=== PATIENT | female | born 1995 | race Caucasian/White ===

== ENCOUNTER → 2020-06-09 | Outpatient (REF) | payer MEDICAID | LOC: M WUC 20:09 | PROVIDERS: ATTEND Physician Assistant | DX: Z11.3 Encounter for screening for infections with a predominantly sexual mode of transmission (principal) ==

== ENCOUNTER 2020-11-25 01:31 | Emergency (ER) | payer MEDICAID, OTHER ==
[~2020-11-25] VITALS: Ht 165.1 cm; Wt 70.4 kg
[2020-11-25 02:34] LABS: BASO % 0.4 % (0.0-1.0); EOS # 0.1 10^3/uL (0.0-0.5); EOS % 0.8 % (0.0-3.0); HEMATOCRIT 41.5 % (36.0-47.0); HEMOGLOBIN 13.9 g/dl (12.0-15.5); LYMPH # 2.1 10^3/uL (1.5-5.0); LYMPH % 21.8 % (24.0-44.0); MEAN CORPUSCULAR HEMOGLOBIN 30.1 pg (27.0-33.0); MEAN CORPUSCULAR HGB CONC 33.5 g/dl (32.0-36.5); MEAN CORPUSCULAR VOLUME 89.8 fl (80.0-96.0); MONO # 0.7 10^3/uL (0.0-0.8); MONO % 7.5 % (2.0-8.0); NEUTROPHILS # 6.6 10^3/uL (1.5-8.5); NEUTROPHILS % 69.2 % (36.0-66.0); PLATELET COUNT, AUTOMATED 182 10^3/uL (150-450); RED BLOOD COUNT 4.62 10^6/uL (4.00-5.40); WHITE BLOOD COUNT 9.5 10^3/uL (4.0-10.0)
[2020-11-25 02:36] LABS: APPEARANCE, URINE HAZY (CLEAR); BACTERIA, URINE AUTO NEGATIVE (NEGATIVE); BILIRUBIN, URINE AUTO NEGATIVE (NEGATIVE); BLOOD, URINE BLOOD NEGATIVE (NEGATIVE); COLOR, URINE YELLOW (YELLOW); GLUCOSE, URINE (UA) AUTO NEGATIVE (NEGATIVE); KETONE, URINE AUTO 2+ mg/dL (NEGATIVE); LEUKOCYTE ESTERASE, URINE AUTO NEGATIVE (NEGATIVE); MUCUS, URINE LARGE (NEGATIVE); NITRITE, URINE AUTO NEGATIVE (NEGATIVE); PROTEIN, URINE AUTO 1+ mg/dL (NEGATIVE); RBC, URINE AUTO 1 /HPF (0-3); SPECIFIC GRAVITY URINE AUTO 1.033 (1.002-1.035); SQUAMOUS EPITHELIAL CELL UR AU 4 /HPF (0-6); UROBILINOGEN, URINE AUTO 0.2 mg/dL (0.0-2.0); WBC, URINE AUTO 3 /HPF (0-3)
--- NOTE | 2020-11-25 03:00 | REPVR ---
PROCEDURE INFORMATION: Exam: US First Trimester, Transabdominal and US , Transvaginal Exam date and time: 11/25/2020 2:10 AM Age: 25 years old Clinical indication: Lmp or gestational age (in weeks): Unknown; Vaginal bleeding; TECHNIQUE: Imaging protocol: Real-time transabdominal obstetrical ultrasound of the maternal pelvis and a first trimester , less than 14 weeks 0 days, with image documentation. Transvaginal imaging was used for better evaluation of the fetus, adnexa, and/or cervix. COMPARISON: No relevant prior studies available. FINDINGS: Gestation: There is a single intrauterine gestational sac. However, no pole or yolk sac is visualized. Embryonic/ heart rate: No cardiac activity is visualized. Placenta: The placenta has not yet formed. No subchorionic hemorrhage is noted. Amniotic fluid: Amniotic fluid is normal for gestational age. BIOMETRY: Gestational age (AUA): 4 weeks 6 days Estimated due date (AUA): 07/29/2021 Mean sac diameter: 0.34 cm MATERNAL: Uterus: The anteverted uterus measures 8.9 cm x 3 cm x 4.8 cm. No myometrial mass is noted. Cervix: Unremarkable. Right adnexa: The right ovary measures 3.8 cm x 2.4 cm x 2.5 cm and there is a 2.2 cm x 1.8 cm x 1.7 cm heterogeneous region in the right ovary that may represent a corpus luteal cyst or focal heterogeneity. The arterial and venous color Doppler flow and spectral waveforms within the right ovary are within normal limits, without evidence for right ovarian torsion. No right tubal mass is noted. Left adnexa: The left ovary is normal in appearance. No left ovarian cyst or left adnexal mass is noted. The left ovary measures 2.6 cm x 1.3 cm x 2.7 cm. The color Doppler flow and spectral waveforms within the left ovary are within normal limits, without evidence for left ovarian torsion. Intraperitoneal space: No free fluid is seen from the images obtained. IMPRESSION: Single intrauterine gestational sac with a mean sac diameter corresponding to a gestational age of 4 weeks 6 days and estimated due date on 07/29/2021. However, no pole is visualized, which may be secondary to the early gestational age versus an anembryonic . Follow-up serial beta HCG levels and a follow-up obstetrical ultrasound in 10-14 days or as clinically indicated are suggested. Electronically signed by: Deyvi David On 11/25/2020 02:59:43 AM
[2020-11-25 03:40] VITALS: BP 128/70
[2020-11-25 04:53] LABS: CHLAMYDIA DNA AMPLIFICATION NEGATIVE (NEGATIVE); GC DNA AMPLIFICATION NEGATIVE (NEGATIVE)
== END 2020-11-25 03:45 | disposition home or self-care (01) ==
LOC: M ED 01:31
DX: O36.80X0 Pregnancy with inconclusive fetal viability, not applicable or unspecified (principal); O26.851 Spotting complicating pregnancy, first trimester; Z87.59 Personal history of other complications of pregnancy, childbirth and the puerperium; Z3A.01 Less than 8 weeks gestation of pregnancy

== ENCOUNTER → 2020-11-27 | Outpatient (CLI) | payer OTHER | LOC: M LAB 10:54 | PROVIDERS: ATTEND Obstetrics & Gynecology | DX: Z32.00 Encounter for pregnancy test, result unknown (principal) ==

== ENCOUNTER → 2020-12-01 | Outpatient (REF) | payer OTHER ==
[2020-12-01 13:29] LABS: HEMATOCRIT 41.2 % (36.0-47.0); HEMOGLOBIN 13.5 g/dl (12.0-15.5); MEAN CORPUSCULAR HEMOGLOBIN 30.3 pg (27.0-33.0); MEAN CORPUSCULAR HGB CONC 32.8 g/dl (32.0-36.5); MEAN CORPUSCULAR VOLUME 92.6 fl (80.0-96.0); PLATELET COUNT, AUTOMATED 169 10^3/uL (150-450); RED BLOOD COUNT 4.45 10^6/uL (4.00-5.40); WHITE BLOOD COUNT 9.5 10^3/uL (4.0-10.0)
[2020-12-01 14:43] LABS: HEPATITIS C VIRUS ABY INDEX < 0.0 INDEX (<0.8); HIV 1&2 SCREEN CENTAUR NEGATIVE (NEGATIVE)
== END ==
LOC: M PLALAB 10:50
PROVIDERS: ATTEND Advanced Practice Midwife
DX: Z34.81 Encounter for supervision of other normal pregnancy, first trimester (principal); Z3A.00 Weeks of gestation of pregnancy not specified

== ENCOUNTER 2021-01-20 20:01 | Emergency (ER) | payer MEDICAID, OTHER ==
[~2021-01-20] VITALS: Ht 165.1 cm; Wt 69.8 kg
[2021-01-20 21:11] LABS: BASO % 0.2 % (0.0-1.0); EOS # 0.1 10^3/uL (0.0-0.5); EOS % 1.2 % (0.0-3.0); HEMOGLOBIN 12.3 g/dl (12.0-15.5); LYMPH # 1.4 10^3/uL (1.5-5.0); MEAN CORPUSCULAR HEMOGLOBIN 30.3 pg (27.0-33.0); MEAN CORPUSCULAR HGB CONC 34.2 g/dl (32.0-36.5); MEAN CORPUSCULAR VOLUME 88.7 fl (80.0-96.0); MONO # 0.5 10^3/uL (0.0-0.8); NEUTROPHILS # 6.7 10^3/uL (1.5-8.5); NEUTROPHILS % 76.1 % (36.0-66.0); PLATELET COUNT, AUTOMATED 165 10^3/uL (150-450); RED BLOOD COUNT 4.06 10^6/uL (4.00-5.40); WHITE BLOOD COUNT 8.8 10^3/uL (4.0-10.0)
[2021-01-20 21:44] LABS: BLOOD UREA NITROGEN 11 MG/DL (7-18); CALCIUM LEVEL 8.5 MG/DL (8.5-10.1); CARBON DIOXIDE LEVEL 25 MEQ/L (21-32); CHLORIDE LEVEL 106 MEQ/L (98-107); CREATININE FOR GFR 0.59 MG/DL (0.55-1.30); GLOMERULAR FILTRATION RATE > 60.0 (>60); GLUCOSE, FASTING 76 MG/DL (70-100); POTASSIUM SERUM 3.7 MEQ/L (3.5-5.1); SODIUM LEVEL 136 MEQ/L (136-145)
[2021-01-20 22:42] LABS: HCG, SERUM QUANTITATIVE 24593 MIU/ML
--- NOTE | 2021-01-20 22:54 | REPVR ---
PROCEDURE INFORMATION: Exam: US , Limited Exam date and time: 01/20/2021 9:29 PM Age: 25 years old Clinical indication: Lmp or gestational age (in weeks): 13w 1d; Other: Vaginal bleeding; ; Additional info: Vaginal bleeding, 13 weeks preg TECHNIQUE: Imaging protocol: Real-time ultrasound of the maternal uterus with image documentation. Exam focused on the clinical indication. COMPARISON: 1ST TRIMESTER US 2020-11-25 01:53 FINDINGS: Gestation: Intrauterine gestation. presentation: Breech presentation. heart rate: heart rate 155 bpm. Placenta: Posterior grade 0 placenta with complete previa. BIOMETRY: Gestational age (AUA): Gestational age 13 weeks and 1 day. Estimated due date (AUA): Estimated due date 07/27/2021. MATERNAL: Cervix: Closed 3.2 cm cervix. IMPRESSION: 1. Complete placenta previa, recommend follow-up. 2. Living 13 week and 1 day gestation with estimated due date 07/27/2021. Electronically signed by: Manfred Grant On 01/20/2021 22:54:50 PM
[2021-01-21] VITALS: BP 123/82
--- NOTE | 2021-01-22 20:51 | ED PDOC ---
Post-Departure Follow-Up ob us faxed to eleuterio newman for fu Mila Fleming MD Jan 22, 2021 20:51
== END 2021-01-21 00:02 | disposition home or self-care (01) ==
LOC: M ED 20:01
DX: O44.02 Complete placenta previa NOS or without hemorrhage, second trimester (principal); O21.9 Vomiting of pregnancy, unspecified; Z3A.13 13 weeks gestation of pregnancy

== ENCOUNTER → 2021-03-07 | Outpatient (CLI) | payer OTHER ==
--- NOTE | 2021-03-07 12:13 | REP ---
INDICATION: ANATOMY,PLACENTA LOCATION. COMPARISON: 01/20/2021. TECHNIQUE: Real-time sonographic evaluation of the gravid uterus performed. FINDINGS: Estimated gestational age is19 weeks 5 days, EDC 07/27/2021. Today's measurements indicate appropriate growth. Presentation: Cephalic Placenta posterior, grade 0, without evidence of placenta previa. heart rate is recorded at 139 beats per minute. Amniotic fluid is subjectively normal. Closed cervical length is measured at 3.0 cm. Biometry chart: BPD: 43 mm, 18 weeks 6 days, 29th percentile. HC: 160 mm, 18 weeks 6 days, 24th percentile AC: 148 mm, 20 weeks 0 days, 57th percentile Femur length: 30 mm, 19 weeks 2 days, 40th percentile HC to AC ratio: 1.09, normal range 1.06-1.25. Estimated weight: 302g, 39th percentile. anatomy: Cranium: Grossly normal Lateral Ventricles/Choroid Plexus: Grossly normal Posterior Fossa/Cerebellum: Grossly normal Nose/lips/profile: Grossly normal Four chamber heart: Grossly normal Right ventricular outflow tract: Grossly normal Left ventricular outflow tract: Grossly normal Left-sided stomach: Grossly normal Kidneys: Grossly normal Bladder: Grossly normal Cord Insertion: Grossly normal 3 vessel cord: Grossly normal Spine: Grossly normal IMPRESSION: Viable single intrauterine gestation as above. <Electronically signed by Jesu Camacho > 03/07/21 [id number]
== END ==
LOC: M WHC 09:00
PROVIDERS: ATTEND Advanced Practice Midwife
DX: O44.02 Complete placenta previa NOS or without hemorrhage, second trimester (principal); Z3A.19 19 weeks gestation of pregnancy

== ENCOUNTER → 2021-05-08 | Outpatient (CLI) | payer OTHER ==
[2021-05-08 13:10] LABS: HEMATOCRIT 34.6 % (36.0-47.0); HEMOGLOBIN 11.3 g/dl (12.0-15.5); MEAN CORPUSCULAR HEMOGLOBIN 29.8 pg (27.0-33.0); MEAN CORPUSCULAR HGB CONC 32.7 g/dl (32.0-36.5); MEAN CORPUSCULAR VOLUME 91.3 fl (80.0-96.0); PLATELET COUNT, AUTOMATED 156 10^3/uL (150-450); RED BLOOD COUNT 3.79 10^6/uL (4.00-5.40); WHITE BLOOD COUNT 11.6 10^3/uL (4.0-10.0)
== END ==
LOC: M LAB 10:56
PROVIDERS: ATTEND Advanced Practice Midwife
DX: Z34.82 Encounter for supervision of other normal pregnancy, second trimester (principal); Z3A.00 Weeks of gestation of pregnancy not specified

== ENCOUNTER 2021-05-12 17:36 | Emergency (ER) | payer OTHER ==
[~2021-05-12] VITALS: Ht 165.1 cm; Wt 78.6 kg
[2021-05-12 21:08] LABS: APPEARANCE, URINE HAZY (CLEAR); BACTERIA, URINE AUTO NEGATIVE (NEGATIVE); BILIRUBIN, URINE AUTO NEGATIVE (NEGATIVE); BLOOD, URINE BLOOD NEGATIVE (NEGATIVE); COLOR, URINE YELLOW (YELLOW); GLUCOSE, URINE (UA) AUTO NEGATIVE (NEGATIVE); KETONE, URINE AUTO TRACE mg/dL (NEGATIVE); LEUKOCYTE ESTERASE, URINE AUTO NEGATIVE (NEGATIVE); MUCUS, URINE SMALL (NEGATIVE); NITRITE, URINE AUTO NEGATIVE (NEGATIVE); PROTEIN, URINE AUTO 1+ mg/dL (NEGATIVE); RBC, URINE AUTO 1 /HPF (0-3); SPECIFIC GRAVITY URINE AUTO 1.019 (1.002-1.035); SQUAMOUS EPITHELIAL CELL UR AU 7 /HPF (0-6); WBC, URINE AUTO 3 /HPF (0-3)
[2021-05-12 21:12] LABS: BASO % 0.5 % (0.0-1.0); EOS % 0.2 % (0.0-3.0); HEMATOCRIT 33.1 % (36.0-47.0); HEMOGLOBIN 10.9 g/dl (12.0-15.5); LYMPH # 0.5 10^3/uL (1.5-5.0); LYMPH % 11.3 % (24.0-44.0); MEAN CORPUSCULAR HEMOGLOBIN 30.1 pg (27.0-33.0); MEAN CORPUSCULAR HGB CONC 32.9 g/dl (32.0-36.5); MEAN CORPUSCULAR VOLUME 91.4 fl (80.0-96.0); MONO # 0.5 10^3/uL (0.0-0.8); MONO % 12.2 % (2.0-8.0); NEUTROPHILS # 3.1 10^3/uL (1.5-8.5); NEUTROPHILS % 74.1 % (36.0-66.0); PLATELET COUNT, AUTOMATED 121 10^3/uL (150-450); RED BLOOD COUNT 3.62 10^6/uL (4.00-5.40); WHITE BLOOD COUNT 4.2 10^3/uL (4.0-10.0)
[2021-05-12] MEDS ORDERED: NS 1,000 ML IV ONE (21:25)
[2021-05-12] MEDS ORDERED: ONDANSETRON 4MG/2ML VIAL IV ONE (21:25)
[2021-05-12 21:37] LABS: ALBUMIN 2.7 GM/DL (3.2-5.2); ALT/SGPT 26 U/L (12-78); BILIRUBIN,DIRECT 0.1 MG/DL (0.0-0.2); BILIRUBIN,TOTAL 0.4 MG/DL (0.2-1.0); LIPASE 36 U/L (73-393)
[2021-05-12] MEDS ORDERED: ENOXAPARIN 40MG/0.4ML SYRINGE (J1650 PER 10MG) SC ONE (22:40)
[2021-05-12 22:58] LABS: CREATININE FOR GFR 0.54 MG/DL (0.55-1.30); GLOMERULAR FILTRATION RATE > 60.0 (>60)
[2021-05-13] MEDS ORDERED: ONDA4TAB6 PO (00:07)
[2021-05-13 01:54] VITALS: BP 100/73
== END 2021-05-13 01:58 | disposition home or self-care (01) ==
LOC: M ED 17:36
DX: O98.513 Other viral diseases complicating pregnancy, third trimester (principal); U07.1 COVID-19
CPT/HCPCS: 80047; 80076; 81001; 82565; 83690; 85025; 87086; 96361; 96372; 96374; 99284; J1650; J2405

== ENCOUNTER 2021-05-14 09:33 | Outpatient (CLI) | payer OTHER ==
--- NOTE | 2021-05-12 23:48 | HPEPDOC ---
[facility] Medical History & Physical Date of Admission May 12, 2021 Date of Service: May 12, 2021 Attending Physician: DAVID HOUSE MD History and Physical CHIEF COMPLAINT: Shortness of breath and viral-like symptoms HISTORY OF PRESENT ILLNESS: is a 26yo female who is currently 29 weeks and has notable past medical history of to spontaneously loss pregnancies s/p D&C subsequent anemia who presented to the [facility] ED on 05/12 with a chief complaint of an inability to catch her breath. She was notified that her best friend tested positive for the novel coronavirus, and she has had close exposure with said friend recently. The patient presented to urgent care on [facility] and a rapid Renetta Covid test was positive on the morning of 05/11. At the time of the initial positive, the patient was asymptomatic. Of note, her boyfriend whom she lives with tested negative. On the evening of 05/11, the patient began to develop symptoms in the form of a dry cough, intermittent fever that was responsive to Tylenol, headache, nasal congestion, myalgias, as well as 56 episodes of sharp abdominal pains that she described as being different from her typical pains. Starting 05/12, patient had dyspnea on exertion and felt as though she could not catch her breath; she also had multiple coughing fits and episodes of nonbloody emesis on 05/12. In the ED, the patient was afebrile borderline tachycardic and saturating well on room air (97%). On exertional testing, her saturations only went down to as low as 93%. REVIEW OF SYSTEMS: CONSTITUTIONAL: Intermittent fever as described above. HEENT: Denies double vision, blurry vision, eye pain, ear pain CARDIOVASCULAR: Denies chest pain, chest pressure, or palpitations RESPIRATORY: Reports inability to catch her breath and dyspnea on exertion with coughing fits and persistent dry cough as described in HPI GASTROINTESTINAL: Reports episodes of nonbloody emesis on 05/12 GENITOURINARY: Mild discomfort with urination during current SKIN: Denies recent rash MUSCULOSKELETAL: Reports myalgias since yesterday evening NEUROLOGICAL: Reports headache ENDOCRINE: Denies cold or heat intolerance HEMATOLOGIC: Denies any recent easy bleeding or bruising LYMPHATIC: Denies any new lumps or bumps PAST MEDICAL/SURGICAL HISTORY: Currently 29 weeks Two lost pregnancies, 2017 (at about 11 weeks gestation) & 2019 (at about 14 weeks gestation) Anemia post-D&C (2019) requiring Fe supplementation for some time Appendectomy while in high school D & C x3; related to previous lost pregnancies SOCIAL HISTORY: Lives in [place] with boyfriend who is a sergeant in the [employer]. No current or former tobacco product use No current EtOH use with ; occasional social EtOH use when not No current or former illicit drug use history FAMILY HISTORY: Father: Epilepsy and diabetes mellitus type 2 ALLERGIES: Please see below. HOME MEDICATIONS: Please see below. PHYSICAL EXAMINATION: VITAL SIGNS: Please see below GENERAL APPEARANCE: Pleasant young female seated upright in ED bed. She appears fatigued and ill. HEENT: Normocephalic, atraumatic. Noninjected, anicteric sclera. No significant conjunctival pallor appreciated. Neck: Trachea midline. No lymphadenopathy appreciated. CARDIOVASCULAR: Borderline tachycardic rate, regular rhythm. Normal S1, S2. No murmurs or rubs are appreciated. LUNGS: Mildly decreased tidal volume with no adventitious breath sounds appre ciated. Symmetric chest expansion. Breathing room air. Speaking full sentences. No accessory muscle use noted. ABDOMEN: Gravid abdomen. Hypoactive bowel sounds. EXTREMITIES: Bilateral lower extremities are free of pitting edema. 2+ radial and posterior tibial pulses bilaterally. NEUROLOGICAL: No gross focal neurologic deficits appreciated. Nondysarthric speech. PSYCHIATRIC: Pleasant mood. Appropriate appearing affect. LABORATORY DATA: Please see below. IMAGING:None MICROBIOLOGY: + COVID ASSESSMENT & PLAN: This is a 26yo female w/ h/o active (29 weeks gestation) with 2 prior loss pregnancies requiring D&C and subsequent development of anemia, who presented to the [facility] ED on 05/12 due to roughly 20 hours of viral-like symptoms (cough, fever, myalgias) with dyspnea on exertion and emesis over the past 8 hours. She had had a close contact who tested positive for the novel coronavirus and got tested on the morning of 05/11, which was positive. Patient was hemodynamically stable in the ED and did not desaturate to concerning levels upon exertional testing. Patient will be discharged from the ED but will return for outpatient monoclonal antibody infusion treatment. #Positive COVID-19 infection -Initially tested positive on the morning of 05/11 via Renetta test at urgent care on [facility] (patient's best friend had contacted patient and let the patient know that she had tested positive). -Patient's first day of symptoms was on the evening of 05/11. Please see HPI for extensive description of patient's symptoms. Not hypoxic and afebrile in the ED. -Patient signed consent form to receive monoclonal antibody infusion treatment at next available day/appointment at the [facility] (most likely will be on Friday, 05/14). Monoclonal antibody outpatient treatment order set has been placed. # -Patient will follow up with her tools programmer upon discharge as previously scheduled Home Medications Scheduled PRN Ondansetron (Ondansetron Odt) 4 Mg Tab.rapdis, 4 MG PO Q6-8HP PRN for nausea/vomiting Allergies Coded Allergies: No Known Allergies (Unverified , 11/25/20) GME ATTESTATION GME ATTESTATION My faculty preceptor for this patient encounter was physically present during the encounter and was fully available. All aspects of the patient interview, examination, medical decision making process, and medical care plan development were reviewed and approved by the faculty preceptor. The faculty preceptor is aware and concurs with the plan as stated in the body of this note and will attest to such by his/her cosignature. ATTENDING NOTE Time of service May 13 at 12:45AM Ms. Munoz is a 26 yr old female diagnosed with COVID 19 who will return for MABS. rest per 's H&P FELIBERTO MALIN D.O. May 12, 2021 23:47 DAVID HOUSE MD May 13, 2021 00:12
[~2021-05-14] VITALS: Ht 165.1 cm; Wt 77.0 kg
[~2021-05-14 09:33] MED LIST: ACETAMINOPHEN TAB 650MG DOSE (2X325MG) PO ONE; ALBUTEROL 90 MCG/ACT 8GM HFA INHALER INH PRN; ALBUTEROL SULFATE 2.5 MG/0.5 ML INH NEB SOLN INH PRN; CASIRIVIMAB/IMDEVIMAB 1,200 MG in NS 250 ML IV ONE; EPINEPHrine INJ 1 MG/ML 1ML AMP IM PRN; ONDA4TAB6 PO; diphenhydrAMINE 25MG CAP PO ONE; diphenhydrAMINE 50MG/ML VIAL (J1200) IV PRN; methylPREDNISolone 125MG 2ML VIAL IV PRN
[2021-05-14 09:48] VITALS: BP 103/58
[2021-05-14 10:12] VITALS: BP 98/60
[2021-05-14 10:45] VITALS: BP 96/55
[2021-05-14 11:17] VITALS: BP 96/60
[2021-05-14 12:24] VITALS: BP 98/58
== END 2021-05-14 12:25 | disposition home or self-care (01) ==
LOC: M MS4PR 09:33 → M OPCLI4PR 09:33
PROVIDERS: ATTEND Internal Medicine
DX: U07.1 COVID-19 (principal)

== ENCOUNTER → 2021-07-03 | Outpatient (REF) | payer OTHER ==
[~2021-07-03] MED LIST changes: +ACET-683 PO; -ACETAMINOPHEN TAB 650MG DOSE (2X325MG) PO ONE; -ALBUTEROL 90 MCG/ACT 8GM HFA INHALER INH PRN; -ALBUTEROL SULFATE 2.5 MG/0.5 ML INH NEB SOLN INH PRN; -CASIRIVIMAB/IMDEVIMAB 1,200 MG in NS 250 ML IV ONE; -EPINEPHrine INJ 1 MG/ML 1ML AMP IM PRN; +IBUP80TA PO; +PRENTAB9 PO; -diphenhydrAMINE 25MG CAP PO ONE; -diphenhydrAMINE 50MG/ML VIAL (J1200) IV PRN; -methylPREDNISolone 125MG 2ML VIAL IV PRN
== END ==
LOC: M SFHCWAGY 11:39
PROVIDERS: ATTEND Advanced Practice Midwife
DX: Z34.83 Encounter for supervision of other normal pregnancy, third trimester (principal)

== ENCOUNTER 2021-07-20 08:07 | Inpatient (IN) | payer OTHER ==
[~2021-07-20] VITALS: Ht 170.2 cm; Wt 83.1 kg
[2021-07-20] VITALS (35 sets, daily range): BP systolic 104–152; BP diastolic 57–99
[~2021-07-20 08:07] MED LIST changes: -ACET-683 PO; -IBUP80TA PO; -PRENTAB9 PO
[2021-07-20] MEDS ORDERED: PRENTAB9 PO (08:32)
[2021-07-20] MEDS ORDERED: HOME MED LIST COMPLETE! XX SCH (08:35)
[2021-07-20] MEDS ORDERED: LACTATED RINGER'S 1000 ML IV STA (09:33)
[2021-07-20] MEDS ORDERED: LIDOCAINE 1% MDV 20ML VIAL INFIL PRN (09:35)
[2021-07-20] MEDS ORDERED: METHYLERGONOVINE MALEATE 0.2 MG/ML VIAL (J2210) IM PRN (09:35)
[2021-07-20] MEDS ORDERED: OXYTOCIN DRIP 30 UNITS in IV 1 EA IV PRN (09:35)
[2021-07-20] MEDS: miSOPROStol 50MCG 1/2 TABLET PO SCH ×2 (10:00→14:59)
[2021-07-20 10:01] LABS: HEMATOCRIT 32.5 % (36.0-47.0); HEMOGLOBIN 10.8 g/dl (12.0-15.5); MEAN CORPUSCULAR HEMOGLOBIN 29.2 pg (27.0-33.0); MEAN CORPUSCULAR HGB CONC 33.2 g/dl (32.0-36.5); MEAN CORPUSCULAR VOLUME 87.8 fl (80.0-96.0); PLATELET COUNT, AUTOMATED 151 10^3/uL (150-450)
--- NOTE | 2021-07-20 10:08 | HPEPDOC ---
Obstetrical History & Physical General Date of Admission Jul 20, 2021 at 08:07 History of Present Illness Chief Complaint: Induction of labor (backpain and lack of sleep) Information Provided By: Patient Age: 26 : 3 Term: 0 Pre-term: 0 Abortions: 2 Livin Care Care: Good Care Dating Final EDC: Jul 27, 2021 Final EDC by: LMP EGA at Admission: 39 Antepartum Course Pre- weight (lbs.): 163 Admission Weight (lbs.): 183 Past Medical History Past Obstetrical History : Past Obstetrical History: [employer] SUPER[employer]OR History: Spontaneous , Theraputic Past Medical History Medical History COVID 05/11/2021 Surgical History: Appendectomy, Dilatation and Curettage Family History Significant Family History: Cancer, Heart disease Social History Family situation: Spouse/partner home Psychosocial History: Anxiety, Depression * Smoker: non-smoker Alcohol: Denies Drugs: denies Imunizations Tdap status: current Influenza Status: declined Allergies Coded Allergies: No Known Allergies (Unverified , 11/25/20) Medications Scheduled No.137/Iron/Folic Acd ( Vitamin Tablet) 1 Each Tablet, 1 TAB PO DAILY Physical Examination Physical Examination GENERAL: Alert and oriented times three. BREAST: . ABDOMEN: Gravid and non-tender to touch. FETUS: Is vertex (VTX) by sterile vaginal examination (SVE), fetus is vertex (VTX) by Prem. EFW 7.5-8# HEART RATE: Regular rate and rhythm. LUNGS: Clear to auscultation (CTA). EXTREMITIES: No edema. No clonus. Deep tendon reflexes (DTRs) + 2. Vital Signs/I&O Vital Signs Date Time Temp Pulse Resp B/P (MAP) Pulse Ox O2 Delivery O2 Flow Rate FiO2 07/20/21 08:28 97.8 98 18 107/67 (80) Laboratory Data 24H LABS Laboratory Tests 2 07/20/21 08:17: Serology Scanned Report Hepatitis B Testing Pertinent Laboratoy Data Blood Type: O+ RBC Antibody Screen: Negative HIV: Negative Hepatitis B: Negative Hepatitis C: Negative Rapid Plasma Reagin: Nonreactive Rubella: Immune Chlamydia/Gonorrhea: Negative Group B Streptococcus: Negative Glucose Tolerance Test: 94 Anatomy Ultrasound Ultrasound Date: Mar 07, 2021 Placenta Location: Posterior Placenta Previa: No Estimated Weight (grams): 302 (39%) Other Ultrasounds 11/25/20 Vaginal bleeding, GS 4w6d, no cardiac activity or pole 12/01/2020 cw dates in office 01/20/2021 bleeding 13w1d, ANA ROSA 07/27/2021 Complete previa Steroid Therapy Steroid Therapy: No Vaginal Examination Dilation: 1cm Effacement: 60% Station: -2 Cervical Consistency: Medium Cervical Position: Posterior Presentation: Cephalic presentation Assessment Heart Rate (FHR): 135 Variability: Moderate Accelerations: Positive Decelerations: None Tocometer Contractions: Yes (rare) Duration: less than 60 seconds Strength: palpated as mild Assessment/Plan Assessment Mihaela is a 26-year-old (G)3 para (P)0-0-2-0 at 39+0 weeks by first trimester ultrasound. Presents to Labor and Delivery (L&D) elective induction due to backpain and contractions. Denies LOF, bleeding. Fetus is active. Plan Admit and orient per consult Dr Casanova Roofing Subcontractor and consent. Diet: regular. Group B Streptococcus (GBS) negative. Labs and intravenous (IV) per unit protocol. Counseled on misoprostol, Pitocin and induction of labor (IOL). Lactated Ringers (LR): Bolus 500 mL, then saline lock. Considering epidural Anticipate normal spontaneous delivery (). C-S as appropriate. Rosey Treviño CNM Jul 20, 2021 10:08
--- NOTE | 2021-07-20 20:59 | IPNPDOC ---
Text Note Date of Service The patient was seen on 07/20/21. NOTE Progress SROM clear fluid 1833 with onset stronger UC Cat I tracing UC Q 2-3 minutes x 45-60 seconds, moderate SVE /-2 Pt desires epidural. Consider pitocin augmentation post epidural VS,Fishbone, I+O VS, Fishbone, I+O Laboratory Tests 07/20/21 09:43 Vital Signs Date Time Temp Pulse Resp B/P (MAP) Pulse Ox O2 Delivery O2 Flow Rate FiO2 07/20/21 19:52 98.2 63 18 136/79 (98) Rosey Treviño CNM Jul 20, 2021 20:59
[2021-07-20] MEDS ORDERED: LR 1,000 ML IV SCH (21:10)
[2021-07-20] MEDS ORDERED: OXYTOCIN DRIP 30 UNITS in IV 1 EA IV SCH (21:10)
[2021-07-20] MEDS ORDERED: FENTANYL 2MCG/ML ROPIVACAINE 0.2% IN 0.9% NACL 100ML IVBAG As Ordered ONE (21:30)
[2021-07-20] MEDS ORDERED: EPIDURAL/PCA KEYS XX PRN (22:15)
[2021-07-20] MEDS ORDERED: ePHEDrine SULFATE 25 MG/5 ML(5MG/ML) SYRINGE IV PRN (22:15)
[2021-07-20] MEDS ORDERED: diphenhydrAMINE 50MG/ML VIAL (J1200) IV PRN (22:15)
[2021-07-20] MEDS ORDERED: EPIDURAL COMMENT XX SCH (22:15)
[2021-07-20] MEDS ORDERED: FENTANYL/ROPIVACAINE/NACL BAG 100 ML EPIDURAL SCH (22:15)
[2021-07-20] MEDS ORDERED: ONDANSETRON 4MG/2ML VIAL IV PRN (22:15)
[2021-07-20] MEDS ORDERED: LACTATED RINGER'S 1000 ML IV PRN (22:15)
[2021-07-20] MEDS ORDERED: NALOXONE INJ 0.4MG/1ML VIAL (J2310 PER 1MG) IV PRN (22:15)
[2021-07-20] MEDS ORDERED: REFRIGERATOR IV KEYS XX PRN (22:15)
[2021-07-21] VITALS (15 sets, daily range): BP systolic 113–140; BP diastolic 60–92
[2021-07-21 02:28] LABS: CORD GAS ABE A -10.7; CORD GAS HCO3 A 16.9 MEQ/L; CORD GAS O2 SAT A 90.7 %; CORD GAS PH A 7.211 UNITS; CORD GAS PO2 A 58.6 mmHg; CORD GAS SBC A 16.1 MEQ/L; CORD GAS TCO2 A 18.2 MEQ/L
[2021-07-21 02:29] LABS: CORD GAS ABE V -6.7; CORD GAS HCO3 V 19.1 MEQ/L; CORD GAS O2 SAT V 78.3 %; CORD GAS PCO2 V 39.6 mmHg; CORD GAS PH V 7.302 UNITS; CORD GAS PO2 V 37.4 mmHg; CORD GAS SBC V 18.6 MEQ/L; CORD GAS TCO2 V 20.4 MEQ/L
[2021-07-21] MEDS ORDERED: MEASLES,MUMPS,RUBELLA VACCINE INJ (MMR-II) (90707) SC SCH (02:45)
[2021-07-21] MEDS ORDERED: DOCUSATE SODIUM 100MG CAPSULE PO PRN (02:45)
[2021-07-21] MEDS ORDERED: RHOGAM 300 MCG (1500 IU) INJ (J2790) IM SCH (02:45)
[2021-07-21] MEDS ORDERED: ACETAMINOPHEN TAB 650MG DOSE (2X325MG) PO PRN (02:45)
[2021-07-21] MEDS ORDERED: DIBUCAINE 1% OINTMENT 30GM TOP PRN (02:45)
[2021-07-21] MEDS ORDERED: MOM 30ML SUSPENSION UDC PO PRN (02:45)
[2021-07-21] MEDS ORDERED: METHYLERGONOVINE MALEATE 0.2 MG TAB PO PRN (02:45)
[2021-07-21] MEDS ORDERED: ANUSOL HC CREAM 30GM TOP PRN (02:45)
[2021-07-21] MEDS ORDERED: IBUPROFEN 600MG TAB PO PRN (02:45)
--- NOTE | 2021-07-21 02:58 | DNPDOC ---
[facility] Delivery Note Delivery Note DATE OF DELIVERY: 07/21/2021 PREDELIVERY DIAGNOSIS: 39+1/7 weeks' gestation and labor. POST DELIVERY DIAGNOSIS: Delivered. PROCEDURE: Spontaneous vaginal delivery. PROVIDER: Rosey Treviño CNM ANESTHESIA: Epidural. ESTIMATED BLOOD LOSS: 250 mL. FINDINGS: 8 pound 4 ounce, 3750gm female infant, Score 7/9, no nuchal cord. Compound presentation with right arm. 1 minute, 35 second dystocia DELIVERY SUMMARY: Patient is a 26-year-old 3 now para 1-0-2-1 who was admitted to labor and delivery for elective induction of labor. She received misoprostol x 2 and labor did ensue. Spontaneous rupture of membranes, clear fluid 1833. She utilized an epidural for labor coping. Pitocin augmentation of labor was required after epidural. Fully dilated 0100. Slow . Head delivered DAVI @ 0209 with slow restitution to ROP. Shoulder dystocia was encountered for 1 minute, 35 second, relieved with supra pubic pressure, MacRoberts and closed knee pushing. Corpus delivered 0211. Spontaneous respirations with stimulation. Transitioned on maternal abdomen. Cord gases obtained, arterial 7.211 with BE -10.7 and venous 7.302 with BE -6.07. Cord doubly clamped and cut once pulsations ceased by FOB under my direction. Placenta mack, intact with 3v cord. Fundus firmed with massage and premixed IV pitocin bolus. EBL 250ml. Cervix vagina and perineum inspected. Right vaginal side wall laceration noted, infiltrated with lidocaine and reapproximated with 3-0 vicryl rapide. Excellent hemostasis noted. Sponge, sharp and instrument count correct. Rosey Treviño CNM Jul 21, 2021 02:58
[2021-07-21] MEDS: PRENATAL VITAMINS CHEWABLE TABLET PO SCH (08:10)
[2021-07-21] MEDS: ACETAMINOPHEN 500 MG TAB PO PRN (08:11)
[2021-07-21] MEDS: IBUPROFEN 800 MG TAB PO PRN (14:15)
[2021-07-22 06:00] VITALS: BP 117/73
[2021-07-22] MEDS: PRENATAL VITAMINS CHEWABLE TABLET PO SCH (09:11)
[2021-07-22] MEDS: IBUPROFEN 800 MG TAB PO PRN (09:11)
--- NOTE | 2021-07-22 14:28 | IPNPDOC ---
Progress Note Date of Service: Jul 22, 2021 Progress Note SUBJECT: Status post . She has been ambulating, voiding spontaneously without issue and tolerating regular diet. Lochia decreasing/minimal. Pain is well-controlled. Denies headache, visual changes, right upper quadrant pain, shortness breath or chest pain. OBJECTIVE: VITAL SIGNS: Within normal limits, afebrile. Alert and oriented times three. Abdomen: Fundus firm at U-2. Soft, NTTP. ASSESSMENT: Status post uncomplicated spontaneous vaginal delivery. Vitals within normal limits, afebrile, hemodynamically stable with no evidence of infection. PLAN: Discharge to home tomorrow Tylenol and Motrin for pain. Routine instructions/precautions reviewed. Routine PP visit in 6 weeks in clinic. VS, I&O, 24H, Fishbone Vital Signs/I&O Vital Signs Date Time Temp Pulse Resp B/P (MAP) Pulse Ox O2 Delivery O2 Flow Rate FiO2 07/22/21 06:00 97.7 72 16 117/73 (88) 98 Room Air PILO MATAMOROS DO Jul 22, 2021 14:28
[2021-07-22] MEDS: ACETAMINOPHEN 500 MG TAB PO PRN (16:00)
[2021-07-22 17:37] VITALS: BP 120/74
[2021-07-23 06:00] VITALS: BP 133/83
[2021-07-23] MEDS: IBUPROFEN 800 MG TAB PO PRN (08:24)
[2021-07-23] MEDS: PRENATAL VITAMINS CHEWABLE TABLET PO SCH (08:24)
[2021-07-23] MEDS ORDERED: IBUP80TA PO (08:55)
[2021-07-23] MEDS ORDERED: ACET-683 PO (08:55)
== END 2021-07-23 09:57 | disposition home or self-care (01) | DRG 560 ==
LOC: M LDI 08:07 → M OBS 07-21 04:41
PROVIDERS: ADMIT Advanced Practice Midwife; ATTEND Advanced Practice Midwife
PROC: 3E0DXGC Introduction of Other Therapeutic Substance into Mouth and Pharynx, External Approach (ICD-10-PCS; 2021-07-20)
PROC: 10E0XZZ Delivery of Products of Conception, External Approach (ICD-10-PCS; principal; 2021-07-21)
PROC: 0HQ9XZZ Repair Perineum Skin, External Approach (ICD-10-PCS; 2021-07-21)
DX: O70.0 First degree perineal laceration during delivery (principal); O32.6XX0 Maternal care for compound presentation, not applicable or unspecified; Z37.0 Single live birth; Z3A.39 39 weeks gestation of pregnancy

== ENCOUNTER → 2021-12-13 | Outpatient (REF) | payer OTHER ==
[~2021-12-13] MED LIST changes: +ACET-683 PO; +IBUP80TA PO; +PRENTAB9 PO
== END ==
LOC: M PLALAB 09:04
PROVIDERS: ATTEND Advanced Practice Midwife
DX: Z12.4 Encounter for screening for malignant neoplasm of cervix (principal)

== ENCOUNTER → 2022-03-17 | Outpatient (REF) | LOC: M LABSMTC 11:25 | PROVIDERS: ATTEND Family Medicine | DX: Z20.822 Contact with and (suspected) exposure to COVID-19 (principal) ==